=== PATIENT | female | born 1940 | race Caucasian/White ===

== ENCOUNTER → 2023-09-03 13:38 | Outpatient (REF) | payer MEDICARE, SELFPAY | LOC: HWRAD 13:38 | PROVIDERS: ATTENDING PHYSICIAN Specialist; FAMILY PHYSICIAN Family Medicine | DX: D41.01 Neoplasm of uncertain behavior of right kidney (principal) | CPT/HCPCS: 76775 ==

== ENCOUNTER 2024-04-08 19:02 | Observation (INO) | payer MEDICARE, SELFPAY ==
[2024-04-08] VITALS (15 sets, daily range): BP systolic 75–128; BP diastolic 47–90; PULSE 80–108; BMI 21.5; BMI 21.4
[2024-04-08 14:24] LABS: % Basophils 0.3 % (0-2); % Eosinophils 0.6 % (0-6); % Immature Granulocytes 0.5 % (0-0.5); % Lymphocytes 12.2 % (20.5-51.1); % Neutrophils 80.4 % (42.2-75.2); Absolute Eosinophils 0.1 10^3/uL (0-0.7); Absolute Immature Granulocytes 0.1 10^3/uL (0-0.05); Absolute Lymphocytes 1.3 10^3/uL (1.2-3.4); Absolute Monocytes 0.6 10^3/uL (0.1-0.6); Absolute Neutrophils 8.3 10^3/uL (1.4-6.5); Hematocrit 37.8 % (37.0-47.0); Hemoglobin 12.8 g/dL (12.0-16.0); Mean Corp Hgb Conc. 33.9 g/dL (33.0-37.0); Mean Corpuscular Hgb 29.6 pg (27.0-31.0); Mean Corpuscular Volume 87.5 fL (81.0-99.0); Mean Platelet Volume 10.6 fL (7.4-10.4); Nucleated Red Blood Cells % 0 %; Platelet Count 209 10^3/uL (130-400); Red Blood Cell Count 4.32 10^6/uL (4.20-5.40); Red Cell Dist. Width 12.3 % (11.5-14.5); White Blood Cell Count 10.3 10^3/uL (4.8-10.8)
[2024-04-08 14:51] LABS: Troponin I < 0.012 ng/ml
--- NOTE | 2024-04-08 14:51 | ED.GENMED ---
History of Present Illness
General
Chief Complaint: Fainting/Passed Out
Source: patient
Time Seen by Provider: 04/08/24 13:19
History of Present Illness
History of Present Illness:
84-year-old female presenting to the emergency department for evaluation after having 2 syncopal episodes over the last 2 days, 1 on Thursday and 1 yesterday. She notes the first time she was in the kitchen and yesterday was in the bathroom.
Patient states no prodromal symptoms prior to syncopizing She believes she struck her back against a vanity in her bathroom. Today patient notes some diffuse back pain. Patient also notes a separate incident 2 weeks ago where she excellently
tripped while walking on her stairs and fell onto the lip of one of the stairs injuring the rib area just underneath the left breast. States has been having pain to this area but it it has been improving. Patient denies any use of anticoagulants.
No fevers or infectious symptoms. No other concerns at this time
Past History
Past History
ED Past Medical History: Other (IBS, C. difficile colitis, GERD, chronic back pain)
ED Past Surgical History: Orthopedic and Other (agree with RN note )
Social History
Tobacco: Non-smoker
Alcohol: None
Drug: None
Personal:
Living: with family
Review of Systems
Review of Systems
All Other Systems: ROS reviewed and negative except as documented in HPI and ROS
Phy Exam
Physical Exam
Physical Exam:
GENERAL: Alert , in no apparent distress at rest
Head: Calvarium is without any sign of trauma. There is ecchymosis to the right inferior lip
EYE: clear conjunctiva
NECK: Supple
ENT: o/p clr, mmm.
CARDIAC: Regular rate and rhythm, frequent PAC on telemetry, systolic murmur noted at right second intercostal space.
LUNGS: Clear breath sounds bilaterally, no acute respiratory distress, no wheezes/rales/rhonchi
ABDOMEN: Soft, without focal tenderness, no r/g, no cvat
BACK: diffusely tender. no focal areas of ttp
NEUROLOGICAL: Alert and oriented x 3
SKIN: Warm and dry, skin intact.
MUSCULOSKELETAL: No edema, well perfused.
PSYCH: Normal and appropriate interaction.
Scores
Heart Failure Risk
Heart Failure Risk Score: Not Applicable
Heart Score for Chest Pain Patients
STEMI patient?: Not applicable
Withdrawal Assessment of Alcohol
Withdrawal Assessment Completed?: Not applicable
Course
Orders/Labs/Results
Orders:
Orders
04/08/24 12:43
EKG [Electrocardiogram (*1)] Urgent
Reason for Study: Syncope
EKG- Treatment ONCE
04/08/24 13:36
Orthostatic VS- Treatment ONCE
CR Pelvis - 1 Or 2 Views Urgent
Comment:
Reason For Exam: lower back/pelvic pain s/p fall/syncope
04/08/24 13:38
CT Head W/o Iv Contrast Urgent
Comment:
Reason For Exam: syncope, head injury
04/08/24 14:16
Complete Blood Count/With Diff Urgent
Comprehensive Metabolic Panel Urgent
Magnesium Urgent
TSH Urgent
Troponin I Urgent
04/08/24 14:20
CT Cervical Spine W/o Iv Contr Urgent
Comment:
Reason For Exam: syncope, pain
04/08/24 14:53
0.9% Sodium Chloride 1000 ml [Nss] 1,000 ml IV BOLUS
Abnormal Lab Results
04/08/24
14:16
MPV 10.6 H fL
(7.4-10.4)
Abs Immat Gran (auto) 0.1 H 10^3/uL
(0-0.05)
Absolute Neuts (auto) 8.3 H 10^3/uL
(1.4-6.5)
Neutrophils % 80.4 H %
(42.2-75.2)
Lymphocytes % 12.2 L %
(20.5-51.1)
Creatinine 0.5 L mg/dL
(0.6-1.0)
Glucose 116 H mg/dl
(70-99)
Total Protein 6.1 L g/dl
(6.3-8.2)
TSH < 0.02 L uIU/ml
(0.47-4.68)
04/08/24 14:16
04/08/24 14:16
Vital Signs
Initial and Last Documented VS:
Initial Vital Signs
Temp Pulse Resp BP Pulse Ox
98.7 F 93 18 123/73 97
04/08/24 12:40 04/08/24 12:40 04/08/24 12:40 04/08/24 12:40 04/08/24 12:40
Last Documented Vital Signs
Temp Pulse Resp BP Pulse Ox
98.7 F 87 22 124/85 98
04/08/24 12:40 04/08/24 15:15 04/08/24 15:15 04/08/24 15:01 04/08/24 15:15
MDM/Problems Addressed
Differential Diagnosis Includes:
Vagal event, cardiac dysrhythmia, anemia, electrolyte disturbance, medication interactions
MDM/Problems Addressed:
84-year-old female presenting to the emergency department for evaluation of 2 syncopal episodes over the last 2 days. Patient notes that she has probably had about 6 episodes of syncope over the last 2 years. Follows with cardiology at [facility]
and has had workup for this with no abnormalities found in the past. Patient notes she does not believe she had prodromal symptoms prior to her syncope. Patient does have a systolic murmur and given her age may have a component of aortic stenosis.
Will check orthostatics. Labs ordered. CT of the head and cervical spine ordered. I also ordered an x-ray of the due to patient's reported pain. Disposition pending
*Pulse Oximetry
Patient hypoxic: no
*EKG
Interpreted by ED Provider?: Yes
Heart Rate: 109
Rate: tachycardiac
Rhythm: other (AT)
[place]: normal axis
Ischemia: no ischemia
*Network Security Engineer Interpretation
Rate: tachycardiac
Heart Rate: 92
Rhythm: PAC's
*Critical Care Note
Total Time (30-74mins, 75-104mins- exclusive of procedures): Not Applicable
Data Reviewed
Review of Other/Old Records Reveals: Labs
Source: patient
Patient Management
Escalation/DeEscalation of care consider admission/obs:
Patient lab findings noted and without abnormalities. CT head/C-spine with chronic findings and no acute emergent pathologies. Pelvic XR without fracture.
Patient did have positive orthostatics. Reported she felt a little weak when standing but notes she did not feel weak prior to syncopal episodes. 1L NSS ordered
Given her age, cardiac findings (murmur) and AT feel it would be best for patient to be monitored and possible cardiology consult.
Hospitalist team is aware and accepts for continued eval and treatment
ED Attending Note
-
Portions of this chart may have been created with voice recognition software.� Occasional wrong word or��sound alike� substitutions may have occurred due to the inherent limitations of voice recognition software.
Discharge Plan
Departure
Patient Disposition: Admit
Date of Disposition: 04/08/24
Time of Disposition: 15:34
Presentation/result/management discussed w/ accepting MD/DO: Hospitalist
Discharge Problem:
Syncope
Prescriptions:
No Action
oxazepam 10 MG capsule
10 mg PO .UP TO QID
azelastine 137 MCG/SPRAY aerosol,spray
2 spray intranasal BID
ezetimibe 10 MG tablet
10 mg PO QPM
Voltaren Gel
1 unit topical BID
ascorbic acid (vitamin C) [Vitamin C] 1,000 MG tablet
1,000 mg PO DAILY
venlafaxine 25 MG tablet
75 mg PO DAILY
ranitidine HCl [Zantac] 150 MG tablet
150 mg PO BID
lidocaine 1 PATCH adhesive patch,medicated
4 patch topical DAILY PRN (Reason: pain)
gabapentin 300 MG capsule
300 mg PO BID
nvoqccdv-mug-HG-lycopen-lutein [Centrum Silver] 1 EACH tablet
1 ea PO DAILY
pldrhlnq-ytlaa-qdmjj-CF borate [[employer]] 1 EACH tablet
2 ea PO DAILY
oxybutynin chloride 10 MG tablet extended release 24hr
10 mg PO DAILY PRN (Reason: urinary frequency)
loratadine-pseudoephedrine 240 MG/10 MG tablet extended release 24 hr
1 tab PO DAILY
dicyclomine 20 MG tablet
20 mg PO .UP TO QID
levothyroxine 125 MCG tablet
125 mcg PO DAILY
vitamin B complex 1 TAB tablet
1 tab PO DAILY
Super Bio Curcumin
400 mg PO DAILY
Vancomycin
250 mg PO DAILY
L.acidoph, paracasei,B. lactis 1 EACH capsule
1 ea PO BID
hydrocodone-acetaminophen [[place]] 1 EACH tablet
1 ea PO Q6HPRN PRN (Reason: pain) Qty: 30 0RF
Rx Instructions:
Take 1 tablet four times a day, every 6 hours for pain
cephalexin 500 MG capsule
500 mg PO QID 4 Days 0RF
lorazepam 1 MG tablet
1 mg PO TIDPRN PRN (Reason: pain/spasms) Qty: 40 0RF
aspirin 325 MG tablet
325 mg PO DAILY
multivitamin with minerals [Hair,Skin and Nails] 1 EACH tablet
1 ea PO BID
cranberry 500 MG capsule
500 mg PO DAILY
vancomycin 250 MG/5 ML recon soln
250 mg PO DAILY
Hemp Oil Oil
750 mg PO BID
Referrals:
Dennys Trinh DO [Family Provider] -
Interventions
Interventions:
*Risk Screen - Suicide Last Done: 04/08/24 14:06
*General Assessment Last Done: 04/08/24 14:06
*Neglect/Abuse Screening Last Done: 04/08/24 14:06
*ED COVID-19 Vaccine History Last Done: 04/08/24 14:06
ED- Cardiac Assessment Last Done: 04/08/24 14:34
ED- Neurological Assessment Last Done: 04/08/24 14:34
Discharge Date and Time
Print Language: ST LUCIAN
[2024-04-08] MEDS: NSS 1000 IV (14:54)
[2024-04-08 15:19] LABS: TSH < 0.02 uIU/ml (0.47-4.68)
[2024-04-08 15:27] LABS: ALT (SGPT) 25 U/L (0-35); AST (SGOT) 29 U/L (14-36); Albumin 3.9 g/dl (3.5-5.0); Alkaline Phosphatase 123 U/L (38-126); Blood Urea Nitrogen 15 mg/dl (7-17); Calcium 9.6 mg/dl (8.4-10.2); Carbon Dioxide 26 mmol/L (22-30); Chloride 100 mmol/L (98-107); Estimated Creatinine Clearance 58 ml/min; Glucose 116 mg/dl (70-99); Magnesium 1.9 mg/dl (1.6-2.3); Potassium 3.9 mmol/L (3.5-5.1); Sodium 138 mmol/L (135-145); Total Bilirubin 0.5 mg/dl (0.2-1.3); Total Protein 6.1 g/dl (6.3-8.2); eGFR > 60.00
[2024-04-08] MEDS: PERCOCET 5/325 1 TABLET PO ×2 (15:44→21:05)
--- NOTE | 2024-04-08 15:54 | HPS.HSE ---
Family Physician
-
Family Physician: Dennys Trinh
Chief Complaint
-
syncope
History of Present Illness
84F IBS GERD chronic back pain Hypothyroidism p/w daily syncopal episodes past 2 days. Denies fever chills nausea vomiting diarrhea constipation. 2 weeks prior, patient had a mechanical fall on her stairs, tripping and hitting her bottom lip and
left side chest under breast. Reports having pain but has been improving. VSS, labs notable for Suppressed TSH, Free T4 pending. No acute abn's CT head cervical spine and X-ray pelvis.
Medical History
Past Medical History
Past Medical History: Reports Other (as above)
Past Surgical History: Reports Other (as above)
Social History
Tobacco: Non-smoker
Alcohol: None
Drug: None
Personal:
Living: With Family
Family History
Family History: Not pertinent (reviewed)
Allergies / Home Medications
Allergies reflects when Allergies were last updated in [facility].
Home Medications with original date entered in [facility]
Allergy/Medication List:
Allergies
Allergy/AdvReac Type Severity Reaction Status Date / Time
orange Allergy HIVES 'TOO Verified 04/08/24 12:42
MANY
ORANGES'
verapamil [Verapamil] Allergy Rash/Flushing Verified 04/08/24 12:42
face and
neck
environmental Allergy sneeze/coug Uncoded 04/08/24 12:42
h
Home Medications
azelastine 137 mcg (0.1 %) nasal spray 1 spray intranasal DAILY 06/28/10
ezetimibe 10 mg tablet 10 mg PO HS 06/28/10
gabapentin 300 mg capsule 300 mg PO DAILY 01/25/17
lidocaine 5 % topical patch 2 patch topical DAILYPRN PRN neck pain 01/25/17
jtxfcznd-hfp-trlap acid 0.4 mg-lycopene 300 mcg-lutein 250 mcg tablet (Centrum Silver) 1 ea PO DAILY 01/25/17
dicyclomine 20 mg tablet 20 mg PO QIDPRN PRN IBS 03/17/18
levothyroxine 125 mcg tablet 125 mcg PO DAILY 03/17/18
oxybutynin chloride 10 mg tablet,extended release 24 hr 10 mg PO DAILYPRN PRN urinary frequency 03/17/18
vitamin B complex 1 tab PO DAILY 03/17/18
cranberry 500 mg capsule 500 mg PO BID 03/22/18
multivitamin with minerals (Hair,Skin and Nails tablet) 1 ea PO BID 03/22/18
Saccharomyces boulardii 250 mg capsule (Florastor) 250 mg PO DAILY 04/08/24
ascorbic acid (vitamin C) 500 mg tablet (Vitamin C) 500 mg PO DAILY 04/08/24
cholecalciferol (vitamin D3) 25 mcg (1,000 unit) tablet (Vitamin D3) 25 mcg PO DAILY 04/08/24
diclofenac sodium 1 % topical gel 2 g topical DAILYPRN PRN mild pain 04/08/24
esomeprazole magnesium 20 mg capsule,delayed release (Nexium 24HR) 20 mg PO DAILY 04/08/24
famotidine 40 mg tablet 40 mg PO HS 04/08/24
fluticasone propionate 50 mcg/actuation nasal spray,suspension 1 spray intranasal DAILY 04/08/24
gabapentin 300 mg capsule 600 mg PO HS 04/08/24
ibuprofen 200 mg tablet (Advil) 400 mg PO Q6HPRN PRN mild pain 04/08/24
montelukast 10 mg tablet 10 mg PO HS 04/08/24
naphazo HCl 0.025 %-hyprome 0.2 %-ps 80 0.5 %-Zn sulf 0.25 % eye drops (Clear Eyes Complete) 1 drp BOTH EYES QIDPRN PRN dry eyes 04/08/24
turmeric 400 mg capsule 400 mg PO DAILY 04/08/24
venlafaxine 75 mg tablet 75 mg PO DAILY 04/08/24
vitamins A,C,K-fwzk-geqstd 4,296 mcg-226 mg-90 mg capsule (PreserVision AREDS) 1 cap PO BID 04/08/24
zinc sulfate 50 mg zinc (220 mg) tablet 50 mg PO DAILY 04/08/24
Review of Systems
-
A 12 point ROS was completed and negative except as noted: Yes
Constitutional: Reports Other (as below)
Physical Exam
Vital Signs
Vital Signs
Temp Pulse Resp BP Pulse Ox
98.7 F 87 22 124/85 98
04/08/24 12:40 04/08/24 15:15 04/08/24 15:15 04/08/24 15:01 04/08/24 15:15
Physical Exam
General: Other (as below)
Laboratory Results
-
04/08/24 14:16
04/08/24 14:16
Laboratory Results
Total Bilirubin 0.5 mg/dl (0.2-1.3) 04/08/24 14:16
Total Bilirubin Cancelled 04/08/24 14:16
AST 29 U/L (14-36) 04/08/24 14:16
AST Cancelled 04/08/24 14:16
ALT 25 U/L (0-35) 04/08/24 14:16
ALT Cancelled 04/08/24 14:16
Alkaline Phosphatase 123 U/L (38-126) 04/08/24 14:16
Alkaline Phosphatase Cancelled 04/08/24 14:16
Troponin I < 0.012 ng/ml 04/08/24 14:16
Impression/Plan
-
ROS
General: Denies fever chills night sweats unexpected weight loss
Neuro: Denies seizure shaking dizziness vertigo Reports Syncope
Psych: denies depression hallucinations confusion manic episodes
Endocrine: Denies polyuria polydipsia polyphagia heat/cold intolerance
HEENT: Denies blindness visual disturbances epistaxis
Pulmonary: denies coughing hemoptysis sneezing sob dyspnea on exertion
Cardiovascular: denies chest pain palpitations leg swelling
Hematology: denies signs symptoms of anemia easy bruising/bleeding
Gastrointestinal: denies nausea vomiting diarrhea constipation hematemesis hematochezia melena
Genito-Urinary: denies retention incontinence dysuria
Musculoskeletal: reports joint pain
Dermatology: reports bruising bottom lip from fall
Physical Exam
General: No pallor, cyanosis, or jaundice.
HEENT: Throat clear. PERRLA Normocephalic atraumatic
NECK: Supple. No JVD Carotid Bruits
RESPIRATORY: Lungs clear to auscultation. No crackles wheezes stridor
CVS: S1, S2 normal. RRR. No murmur, rub or gallop.
ABDOMEN: Soft, non-tender. No distension. BS+/normal.
EXTREMITIES: No peripheral cyanosis or edema.
LUMBER PRESS OPERATOR: AOx3. No focal deficits.
IMPRESSION:
84F IBS GERD chronic back pain Hypothyroidism p/w daily syncopal episodes past 2 days. Denies fever chills nausea vomiting diarrhea constipation. 2 weeks prior, patient had a mechanical fall on her stairs, tripping and hitting her bottom lip and
left side chest under breast. Reports having pain but has been improving. VSS, labs notable for Suppressed TSH, Free T4 pending. No acute abn's CT head cervical spine and X-ray pelvis. Noted heart murmur present for years. Patient had syncope
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
PLAN:
#Syncope
#Suspect Orthostatic Hypotension
#Heart Murmur
#hx falls
Tele Obs
Check ECHO
Cardio eval
monitor orthostatic vitals
Apply abd binder during day
PT/OT eval
check CR ribs
Fall precautions
#Chronic back pain
pain control
percocet prn
#Hypothyroidism
TSH suppressed, T4 pending
Clinically does not exhibit hyperthyroidism
cont home Synthroid dose for now
dvt ppx Lovenox
Full Code as per patient and son at bedside
I spent a total of 75 minutes with the patient or on the floor. More than 50% of this time involved counseling and coordination of care.
[2024-04-08 20:16] LABS: Free T4 2.27 ng/dl (0.78-2.19)
[2024-04-08] MEDS: NEURONTIN 600 MG PO (21:03)
[2024-04-08] MEDS: ZETIA 10 MG PO (21:04)
[2024-04-08] MEDS: SINGULAIR 10 MG PO (21:04)
[2024-04-08] MEDS: PEPCID 40 MG PO (21:04)
--- NOTE | 2024-04-08 22:11 | PTCARENOTE ---
patient admitted to [facility], accompanied by her son. Placed on Tele #[phone], oriented to room and poc. Inst on fall precautions and need to call for assistance to go to the bathroom or get oob. Pt verb understanding. Admission assessment completed
[2024-04-09] VITALS (10 sets, daily range): BP systolic 101–136; BP diastolic 44–80; PULSE 70–94; O2SAT 93
[2024-04-09] MEDS: PERCOCET 5/325 1 TABLET PO ×2 (02:40→09:23)
[2024-04-09] MEDS: SYNTHROID 125 MCG PO (05:05)
--- NOTE | 2024-04-09 07:08 | W.PN.HOSP.TC ---
Today's Communication/Plan
-
pain control
percocet switched to oxycodone prn
check thoracic spine x-ray
PT/OT
monitor orthostatic vials
Assessment / Plan
Assessment / Plan
Physical Exam
General: No pallor, cyanosis, or jaundice.
HEENT: Throat clear. PERRLA Normocephalic atraumatic
NECK: Supple. No JVD Carotid Bruits
RESPIRATORY: Lungs clear to auscultation. No crackles wheezes stridor
CVS: S1, S2 normal. RRR. No murmur, rub or gallop.
ABDOMEN: Soft, non-tender. No distension. BS+/normal.
EXTREMITIES: No peripheral cyanosis or edema.
MARGIN TRIMMER: AOx3. No focal deficits.
IMPRESSION:
84F IBS GERD chronic back pain Hypothyroidism p/w daily syncopal episodes past 2 days. Denies fever chills nausea vomiting diarrhea constipation. 2 weeks prior, patient had a mechanical fall on her stairs, tripping and hitting her bottom lip and
left side chest under breast. Reports having pain but has been improving. VSS, labs notable for Suppressed TSH, Free T4 pending. No acute abn's CT head cervical spine and X-ray pelvis. Noted heart murmur present for years. Patient had syncope
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
PLAN:
#Syncope
#Orthostatic Hypotension since improved
#Heart Murmur
#hx falls
Tele Obs
ECHO pending
Cardio eval appreciated
monitor orthostatic vitals (initial noted systolic drop from supine 117/66 to 75/59 standing, since improved/resolved)
Apply abd binder during day
PT/OT eval appreciated Home health
CR ribs appreciated no rib fractures but notes possible T10 compression fx
Fall precautions
#Chronic back pain
pain control
appears oversedated with percocet switched to oxycodone 2.5 mg prn
#Hypothyroidism
TSH suppressed, T4 noted elevated
Synthroid dose reduced from 125 mcg to 100 mcg
dvt ppx Lovenox
Full Code
discussed with patient and her son Dennys
I spent a total of 40 minutes with the patient or on the floor. More than 50% of this time involved counseling and coordination of care.
Anticipated Discharge: Within 24 hours
Subjective/Interval History
-
Date of Service: April 09, 2024
No acute distress resting comfortably in bed. On waking patient reporting significant back pain. Seems confused likely due to recent Percocet. Vitals signs stable on room air.
Objective Data
-
Labs:
Laboratory Results
04/09/24
05:50
WBC Pending
Hgb Pending
Hct Pending
Plt Count Pending
Sodium Pending
Potassium Pending
Chloride Pending
Carbon Dioxide Pending
BUN Pending
Creatinine Pending
Glucose Pending
Calcium Pending
Vital Signs:
Vital Signs
Temp Pulse Resp BP Pulse Ox
98.1 F 78 18 136/66 92
04/09/24 03:17 04/09/24 03:17 04/09/24 03:17 04/09/24 03:17 04/09/24 03:17
I&O
04/08/24 04/09/24 04/10/24
06:59 06:59 06:59
Intake Total 480 / 480
Balance 480 / 480
[2024-04-09 07:29] LABS: Hematocrit 35.7 % (37.0-47.0); Hemoglobin 11.9 g/dL (12.0-16.0); Mean Corp Hgb Conc. 33.3 g/dL (33.0-37.0); Mean Corpuscular Hgb 29.4 pg (27.0-31.0); Mean Corpuscular Volume 88.1 fL (81.0-99.0); Mean Platelet Volume 10.9 fL (7.4-10.4); Platelet Count 206 10^3/uL (130-400); Red Blood Cell Count 4.05 10^6/uL (4.20-5.40); Red Cell Dist. Width 12.4 % (11.5-14.5); White Blood Cell Count 7.9 10^3/uL (4.8-10.8)
[2024-04-09 07:53] LABS: Blood Urea Nitrogen 13 mg/dl (7-17); Carbon Dioxide 27 mmol/L (22-30); Chloride 103 mmol/L (98-107); Estimated Creatinine Clearance 60 ml/min; Glucose 111 mg/dl (70-99); Potassium 3.8 mmol/L (3.5-5.1); Sodium 142 mmol/L (135-145); eGFR > 60.00
--- NOTE | 2024-04-09 08:41 | CON.CAR ---
Addendum entered and electronically signed by Mike Beck MD 04/09/24 10:36:
I saw and examined the patient.
The CLOTHING WORKER's note was reviewed and I agree with the note.
Comment: 2 falls, 2 syncopal events over last 2 weeks. Cardiac murmur likely of moderate but echo will r/o more severe or less likely MR. Hayden so far just shows a few very short runs of ATach.
Perhaps home later today or tomorrow with plans for 1) echo and 2) 30 day looping event recorder. She wishes to followup with Dr. Link. Etiology of syncope may prove to be from tachy-lavonne but NO LAVONNE seen at termination of her short runs of
ATach so we may not find bradycardia.
Original Note:
Consultation
Consultation Request
Date/Time Consultation Requested: 04/08/24 8:30p
Date/Time Consultation Performed: 04/09/24 8a
Requesting Provider: Dr. Girard
Performing Provider: CLARISA Langley for Dr. Beck
Reason for Consultation: syncope
Medical History
-
Chief Complaint: syncope
History of Present Illness:
Mrs. Sorensen is an 84 yo female with PACs, PSVT, HLD, GERD, chronic back pain and hypothyroid, who presents to the ER with c/o 2 syncopal episodes last week. One she was standing in the kitchen then woke up on the floor; then the other episode
was the same but in the bathroom. She denies any prodrome or symptoms prior. She also admits to 2 mechanical falls in the last 2 weeks, trip and fall on a blanket then a rug. She c/o mild back and hip pain, x-ray negative. She also has
ecchymosis to her lip/face. She is admitted to the hospitalist service and we are consulted for syncope. She is a patient of Dr. York at [facility] cardiology, last seen about 3 years ago[address] Her sees Dr. Link and she would like to follow up
with Dr. Link as well.
Past Medical History
Past Medical History: Other (as above)
Past Surgical History: Orthopedic
Social History
Tobacco: Non-Smoker
Alcohol: None
Personal:
Living: With Family
Family History
Family History: Reviewed & Not Pertinent
Allergies / Home Medications
Allergy/AdvReac Type Severity Reaction Status Date / Time
orange Allergy HIVES 'TOO Verified 04/08/24 12:42
MANY
ORANGES'
verapamil [Verapamil] Allergy Rash/Flushing Verified 04/08/24 12:42
face and
neck
environmental Allergy sneeze/coug Uncoded 04/08/24 12:42
h
�Medication �Instructions �Recorded �Confirmed �Type
azelastine 137 mcg (0.1 %) nasal 1 spray intranasal DAILY Congestion 06/28/10 04/08/24 History
spray
ezetimibe 10 mg tablet 10 mg PO HS High Cholesterol 06/28/10 04/08/24 History
gabapentin 300 mg capsule 300 mg PO DAILY Pain 01/25/17 04/08/24 History
lidocaine 5 % topical patch 2 patch topical DAILYPRN PRN neck 01/25/17 04/08/24 History
pain
xvicfkky-zwf-czayk acid 0.4 1 ea PO DAILY Supplement 01/25/17 04/08/24 History
mg-lycopene 300 mcg-lutein 250 mcg
tablet (Centrum Silver)
dicyclomine 20 mg tablet 20 mg PO QIDPRN PRN IBS 03/17/18 04/08/24 History
levothyroxine 125 mcg tablet 125 mcg PO DAILY Thyroid 03/17/18 04/08/24 History
oxybutynin chloride 10 mg 10 mg PO DAILYPRN PRN urinary 03/17/18 04/08/24 History
tablet,extended release 24 hr frequency
vitamin B complex 1 tab PO DAILY Supplement 03/17/18 04/08/24 History
cranberry 500 mg capsule 500 mg PO BID Supplement 03/22/18 04/08/24 History
multivitamin with minerals 1 ea PO BID Supplement 03/22/18 04/08/24 History
(Hair,Skin and Nails tablet)
Saccharomyces boulardii 250 mg 250 mg PO DAILY Supplement 04/08/24 04/08/24 History
capsule (Florastor)
ascorbic acid (vitamin C) 500 mg 500 mg PO DAILY Supplement 04/08/24 04/08/24 History
tablet (Vitamin C)
cholecalciferol (vitamin D3) 25 25 mcg PO DAILY Supplement 04/08/24 04/08/24 History
mcg (1,000 unit) tablet (Vitamin
D3)
diclofenac sodium 1 % topical gel 2 g topical DAILYPRN PRN mild pain 04/08/24 04/08/24 History
esomeprazole magnesium 20 mg 20 mg PO DAILY GERD 04/08/24 04/08/24 History
capsule,delayed release (Nexium
24HR)
famotidine 40 mg tablet 40 mg PO HS Gastrointestinal Issue 04/08/24 04/08/24 History
fluticasone propionate 50 1 spray intranasal DAILY Congestion 04/08/24 04/08/24 History
mcg/actuation nasal
spray,suspension
gabapentin 300 mg capsule 600 mg PO HS Pain 04/08/24 04/08/24 History
ibuprofen 200 mg tablet (Advil) 400 mg PO Q6HPRN PRN mild pain 04/08/24 04/08/24 History
montelukast 10 mg tablet 10 mg PO HS ASTHMA 04/08/24 04/08/24 History
naphazo HCl 0.025 %-hyprome 0.2 1 drp BOTH EYES QIDPRN PRN dry eyes 04/08/24 04/08/24 History
%-ps 80 0.5 %-Zn sulf 0.25 % eye
drops (Clear Eyes Complete)
turmeric 400 mg capsule 400 mg PO DAILY Supplement 04/08/24 04/08/24 History
venlafaxine 75 mg tablet 75 mg PO DAILY Mental 04/08/24 04/08/24 History
Health/Anxiety
vitamins A,C,G-jqoa-lxtdhu 4,296 1 cap PO BID Supplement 04/08/24 04/08/24 History
mcg-226 mg-90 mg capsule
(PreserVision AREDS)
zinc sulfate 50 mg zinc (220 mg) 50 mg PO DAILY Supplement 04/08/24 04/08/24 History
tablet
Review of Systems
-
History Source: Patient
All other systems: Negative unless noted
Physical Exam
Vital Signs
Temp Pulse Resp BP Pulse Ox
97.8 F 75 18 130/59 90
04/09/24 07:00 04/09/24 07:00 04/09/24 07:00 04/09/24 07:00 04/09/24 07:00
Lab Results
04/09/24 05:50
04/09/24 05:50
Troponin I < 0.012 ng/ml 04/08/24 14:16
Impression / Plan
-
Syncope - twice last week.
- standing in the kitchen/bathroom then wakes up on the floor.
- denies prodrome or cardiac symptoms prior.
- EKG with Atach 109 bpm.
- tele with NSR with PACs, and PSVT.
- no bradyarrhythmias or pauses on tele, continue to monitor.
- positive orthostatic vitals in the ER as well.
- check echo.
- will need outpatient cardiac monitoring at discharge. she wants to see Dr. Link since her sees him also.
PACs/PSVT/Atach - seen on tele.
- she admits history of these when seeing Dr. York at [facility].
- continue to monitor on tele.
Murmur - likely .
- check echo.
- denies history of valve disease.
GERD - stable on Pepcid, continue.
HLD - stable on Zetia, continue.
Hypothyroid - low TSH with high free T4.
- on levothyroxine.
- management per hospitalist.
Data Reviewed
-
EKG: Tracing Personally Visualized and interpreted (Atach 109 bpm)
Radiology: Report Reviewed by me (hip and cervical spine negative)
CT Scan: Report Reviewed by me (head negative)
Labs: Labs Reviewed by me
Old Records: Reviewed
[2024-04-09] MEDS: VITAMIN C 500 MG PO (09:00)
[2024-04-09] MEDS: VITAMIN D3 (cholecalciferol) 25 MCG PO (09:00)
[2024-04-09] MEDS: PROTONIX 40 MG PO (09:00)
[2024-04-09] MEDS: FLORASTOR 250 MG PO (09:00)
[2024-04-09] MEDS: NEURONTIN 300 MG PO (09:00)
[2024-04-09] MEDS: EFFEXOR 75 MG PO (09:07)
--- NOTE | 2024-04-09 10:50 | CM ---
Patient seen bedside.
IA completed.
Patient lives with spouse, daughter and granddaughter.
Patient independent prior to admission, has a cane.
Friend is going to loan her a RW.
patient does not drive.
patient had VN in the past, denies needs at this time.
PCP: Dr Trinh
Pharmacy: [facility]
Plan: home no needs anticiapted.
Family will transport.
GARIBAY completed
--- NOTE | 2024-04-09 11:04 | PTCARENOTE ---
Assumed care of pt from previous nurse. Pt with pain to back, prn pain medication provided with positive results. Pt is on tele running sinus arrhythmia. Pt call vitale is within reach, pt rings leonides. will cont to monitor.
[2024-04-09] MEDS: LIDOCAINE 4% PATCH 1 PATCH TOPICAL (16:25)
[2024-04-09] MEDS: ROXICODONE 2.5 MG PO ×2 (16:32→20:41)
[2024-04-09] MEDS: LOVENOX 40 MG SC (18:12)
[2024-04-09] MEDS: ZETIA 10 MG PO (20:42)
[2024-04-09] MEDS: PEPCID 40 MG PO (20:42)
[2024-04-09] MEDS: SINGULAIR 10 MG PO (20:42)
[2024-04-09] MEDS: NEURONTIN 600 MG PO (20:43)
[2024-04-09] MEDS: TYLENOL 650 MG PO (20:43)
[2024-04-09] MEDS: MOTRIN 400 MG PO (21:58)
[2024-04-10] MEDS: TYLENOL PO ×2 (00:16→18:35)
[2024-04-10 03:00] VITALS: BP 135/61
[2024-04-10] MEDS: ROXICODONE 2.5 MG PO ×3 (04:28→18:38)
[2024-04-10] MEDS: TYLENOL 650 MG PO ×3 (04:29→14:00)
[2024-04-10] MEDS: SYNTHROID 100 MCG PO (04:31)
[2024-04-10 07:00] VITALS: BP 109/68; BP 113/94; BP 130/64; PULSE 64; PULSE 81; PULSE 85
--- NOTE | 2024-04-10 07:19 | W.PN.HOSP.TC ---
Addendum entered and electronically signed by Saran Girard MD 04/10/24 17:39:
Mild Hypokalemia, repleted
Original Note:
Today's Communication/Plan
-
discharge
Assessment / Plan
Assessment / Plan
Physical Exam
General: No pallor, cyanosis, or jaundice.
HEENT: Throat clear. PERRLA Normocephalic atraumatic
NECK: Supple. No JVD Carotid Bruits
RESPIRATORY: Lungs clear to auscultation. No crackles wheezes stridor
CVS: S1, S2 normal. RRR. No murmur, rub or gallop.
ABDOMEN: Soft, non-tender. No distension. BS+/normal.
EXTREMITIES: No peripheral cyanosis or edema.
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
IMPRESSION:
84F IBS GERD chronic back pain Hypothyroidism p/w daily syncopal episodes past 2 days. Denies fever chills nausea vomiting diarrhea constipation. 2 weeks prior, patient had a mechanical fall on her stairs, tripping and hitting her bottom lip and
left side chest under breast. Reports having pain but has been improving. VSS, labs notable for Suppressed TSH, Free T4 pending. No acute abn's CT head cervical spine and X-ray pelvis. Noted heart murmur present for years. Patient had syncope
work up years ago with [facility] at [facility] and was noted to have paroxysmal supraventricular tachycardia.
PLAN:
#Syncope
#Orthostatic Hypotension since improved
#Heart Murmur
#hx falls
Cardio eval appreciated stable for follow up outpatient Cardiology
monitor orthostatic vitals (initial noted systolic drop from supine 117/66 to 75/59 standing, since improved/resolved)
Apply abd binder during day
PT/OT eval appreciated Home health
CR ribs appreciated no rib fractures but notes possible T10 compression fx confirmed on Thoracic Spine X-ray age indeterminate
Fall precautions
#Chronic back pain
pain control
appears oversedated with percocet switched to oxycodone 2.5 mg prn
mental status since improved, pain remains well controlled at this time
#Hypothyroidism
TSH suppressed, T4 noted elevated
Synthroid dose reduced from 125 mcg to 100 mcg
dvt ppx Lovenox
Full Code
Medically stable for discharge home with home services and outpatient follow up recommendations.
discussed with patient and her son Dennys
Total Time Preparing Discharge ___40____ minutes including examination of the patient, summary of the hospital stay, instructions for continuing care to all relevant caregivers; and preparation of discharge records, prescriptions, and referral
forms if necessary.
Anticipated Discharge: Today
Subjective/Interval History
-
Date of Service: April 10, 2024
Seen and examined at bedside in no acute distress resting comfortably in bed. Reports significant improvement in pain. Overall reports feeling well. Eager to go home
Objective Data
-
Labs:
Laboratory Results
04/10/24
06:00
WBC Pending
Hgb Pending
Hct Pending
Plt Count Pending
Sodium Pending
Potassium Pending
Chloride Pending
Carbon Dioxide Pending
BUN Pending
Creatinine Pending
Glucose Pending
Calcium Pending
Vital Signs:
Vital Signs
Temp Pulse Resp BP Pulse Ox
98.6 F 68 18 135/61 93
04/10/24 03:00 04/10/24 03:00 04/10/24 03:00 04/10/24 03:00 04/10/24 03:00
I&O
04/09/24 04/10/24 04/11/24
06:59 06:59 06:59
Intake Total 480 / 480 840 / 840
Balance 480 / 480 840 / 840
[2024-04-10 07:57] LABS: Hematocrit 36.9 % (37.0-47.0); Hemoglobin 12.5 g/dL (12.0-16.0); Mean Corp Hgb Conc. 33.9 g/dL (33.0-37.0); Mean Corpuscular Hgb 30.3 pg (27.0-31.0); Mean Corpuscular Volume 89.6 fL (81.0-99.0); Mean Platelet Volume 10.4 fL (7.4-10.4); Platelet Count 219 10^3/uL (130-400); Red Blood Cell Count 4.12 10^6/uL (4.20-5.40); Red Cell Dist. Width 12.2 % (11.5-14.5); White Blood Cell Count 6.4 10^3/uL (4.8-10.8)
[2024-04-10 08:34] LABS: Blood Urea Nitrogen 9 mg/dl (7-17); Calcium 9.1 mg/dl (8.4-10.2); Carbon Dioxide 28 mmol/L (22-30); Chloride 100 mmol/L (98-107); Estimated Creatinine Clearance 60 ml/min; Glucose 91 mg/dl (70-99); Magnesium 1.9 mg/dl (1.6-2.3); Phosphorus 4.1 mg/dl (2.5-4.5); Potassium 3.4 mmol/L (3.5-5.1); Sodium 140 mmol/L (135-145); eGFR > 60.00
[2024-04-10] MEDS: VITAMIN C 500 MG PO (10:06)
[2024-04-10] MEDS: PROTONIX 40 MG PO (10:06)
[2024-04-10] MEDS: VITAMIN D3 (cholecalciferol) 25 MCG PO (10:06)
[2024-04-10] MEDS: EFFEXOR 75 MG PO (10:07)
[2024-04-10] MEDS: NEURONTIN 300 MG PO (10:07)
[2024-04-10] MEDS: LIDOCAINE 4% PATCH 1 PATCH TOPICAL (10:08)
[2024-04-10] MEDS: FLORASTOR 250 MG PO (10:15)
[2024-04-10 11:00] VITALS: BP 158/79
--- NOTE | 2024-04-10 11:31 | CM ---
Patient seen bedside.
PT/OT recommending home with home care.
Options reviewed with patient.
Patient would like [facility].
Referral via [facility].
Plan: Home with [facility] whens table.
--- NOTE | 2024-04-10 13:47 | W.PN.CD ---
Today's Communication / Plan
-
Cardiology will sign off
She will followup with our office, her follow's with Dr Link who she wishes to follow with
Additional cardiac workup can be as outpatient:
- Echo
- 28 day looping event recorder with auto-trigger
Cardiollgy will sign off
Impression / Plan
-
Syncope - twice last week
Falls
PACs/PSVT/Atach - seen on tele.
- she admits history of these when seeing Dr. York at [facility].
- no bradycardia
Murmur - likely and less likely MR
- check echo (can be done as outpatient)
GERD
HLD
Hypothyroid - low TSH with high free T4.
- on levothyroxine.
- management per hospitalist.
Subjective:
No CP, palps, falls, or syncope
Physical Exam
Vital Signs/Labs
Vital Signs
Temp Pulse Resp BP Pulse Ox
97.4 F 77 20 158/79 94
04/10/24 11:00 04/10/24 11:00 04/10/24 11:00 04/10/24 11:00 04/10/24 11:00
04/09/24 04/10/24 04/11/24
06:59 06:59 06:59
Actual Weight 56.444 kg
04/10/24 07:24
04/10/24 07:24
Magnesium 1.9 mg/dl (1.6-2.3) 04/10/24 07:24
TSH < 0.02 uIU/ml (0.47-4.68) L 04/08/24 14:16
Free T4 2.27 ng/dl (0.78-2.19) H 04/08/24 14:16
LAB Results
04/08/24
14:16
Troponin I < 0.012
Physical Exam
Constitutional: No acute distress
Cardiovascular: Rhythm & rate is regular, Pedal edema is absent and Systolic murmur present
Respiratory: Respiratory effort normal and Lungs clear to auscul.
GI: Soft
Neuro/Psych: Alert
Data Reviewed
-
Date of Service: April 10, 2024
[2024-04-10 15:00] VITALS: BP 115/58
[2024-04-10] MEDS: KLOR-CON 40 MEQ PO (16:15)
--- NOTE | 2024-04-10 16:22 | CHAP ---
Ms. Sorensen was grateful to be feeling better today. She welcomed prayer. Emotional and spiritual support provided.
[2024-04-10 16:27] VITALS: BP 115/58
--- NOTE | 2024-04-10 17:38 | W.DCSUMMARY ---
Discharge Summary
Discharge Data
Date of Admission: 04/08/24
Date of Discharge: 04/10/24
-
Pending Results: No
Discharge Plan
-
Patient Disposition: Home with Home Care
Discharge Diagnosis/Procedures: Syncope
Orthostatic Hypotension
Falls
Heart Murmur
T10 compression fracture indeterminate age
Hypothyroidism
Iatrogenic Hyperthyroidism
Condition: Fair
Diet: Regular
Activity: As tolerated and With Walker
Driving Restrictions: Not until seen by your Dr
Bathing Restrictions: None
Blood Work: Please repeat BMP with primary care provider in 1 week of discharge.
Please repeat Thyroid Function Tests with primary care provider in 1 month of discharge.
Others Tests: Follow up with Cardiology in 2 weeks for outpatient ECHO and possible outpatient development manager
Other Services: PT and OT
Activity Restrictions/Additional Instructions:
Please follow up with primary care provider in 1 week of discharge and Cardiology in 1-2 weeks of discharge.
Synthroid has been reduced to 100 mcg daily as your thyroid hormone levels were elevated.
A lidocaine patch and 5 days supply as needed oxycodone have been prescribed for back pain likely related to T10 compression fracture.
Please take medications as prescribed/recommended and follow up with primary care provider and/or other healthcare provider involved in your care for refills and/or further adjustment to your medication regimen as necessary.
A script has been provided for a rolling walker.
For orthostatic hypotension, recommend wearing abdominal binder during the day, remove at bedtime
Instructions: Using an abdominal binder
Referrals:
Fred Link DO [Active] - in one to two weeks
Dennys Trinh DO [Family Provider] - in one week
Prescriptions:
New
lidocaine 4 % Adhesive Patch,Medicated
1 patch topical DAILY Qty: 15 0RF
Rx Instructions:
Apply to back pain
levothyroxine 100 mcg Tablet
100 mcg PO DAILY @ 0600 30 Days Qty: 30 0RF
oxycodone 5 mg Tablet
2.5 mg PO BIDPRN PRN (Reason: moderate severe pain) 5 Days Qty: 5 0RF
Continued
azelastine 137 MCG/SPRAY aerosol,spray
1 spray intranasal DAILY
ezetimibe 10 MG tablet
10 mg PO HS
lidocaine 1 PATCH adhesive patch,medicated
2 patch topical DAILYPRN PRN (Reason: neck pain)
gabapentin 300 MG capsule
300 mg PO DAILY
Centrum Silver 1 EACH tablet
1 ea PO DAILY
oxybutynin chloride 10 MG tablet extended release 24hr
10 mg PO DAILYPRN PRN (Reason: urinary frequency)
dicyclomine 20 MG tablet
20 mg PO QIDPRN PRN (Reason: IBS)
vitamin B complex 1 TAB tablet
1 tab PO DAILY
Hair,Skin and Nails 1 EACH tablet
1 ea PO BID
cranberry 500 MG capsule
500 mg PO BID
venlafaxine 75 mg Tablet
75 mg PO DAILY
famotidine 40 mg Tablet
40 mg PO HS
zinc sulfate 50 mg zinc (220 mg) Tablet
50 mg PO DAILY
ascorbic acid (vitamin C) [Vitamin C] 500 mg Tablet
500 mg PO DAILY
ibuprofen [Advil] 200 mg Tablet
400 mg PO Q6HPRN PRN (Reason: mild pain)
gabapentin 300 mg Capsule
600 mg PO HS
montelukast 10 mg Tablet
10 mg PO HS
fluticasone propionate 50 mcg/actuation [place],Suspension
1 spray INTRANASAL DAILY
esomeprazole magnesium [Nexium 24HR] 20 mg Capsule,Delayed Release(Dr/Ec)
20 mg PO DAILY
Saccharomyces boulardii [Florastor] 250 mg Capsule
250 mg PO DAILY
cholecalciferol (vitamin D3) [Vitamin D3] 25 mcg (1,000 unit) Tablet
25 mcg PO DAILY
PreserVision AREDS 4,296 mcg-226 mg-90 mg Capsule
1 cap PO BID
diclofenac sodium 1 % Gel
2 g TOPICAL DAILYPRN PRN (Reason: mild pain)
Clear Eyes Complete 0.025-0.2-0.5 % Drops
1 drp BOTH EYES QIDPRN PRN (Reason: dry eyes)
turmeric 400 mg Capsule
400 mg PO DAILY
Discontinued
levothyroxine 125 MCG tablet
125 mcg PO DAILY
Discharge Orders:
Discharge Patient (As Directed); Ordered 04/10/24
Ordered By: Saran Girard
Discharge Date and Time
Print Language: FAROESE
[2024-04-10] MEDS: LOVENOX SC (18:36)
[2024-04-10] MEDS: MOTRIN 400 MG PO (19:25)
== END 2024-04-10 19:52 | disposition home health service (06) ==
LOC: 4 WEST ACU 19:02
PROVIDERS: Physician Assistant Medical; ADMITTING PHYSICIAN Internal Medicine; CONSULT PHYSICIAN Internal Medicine Cardiovascular Disease; EMERGENCY PHYSICIAN Emergency Medicine; FAMILY PHYSICIAN Family Medicine
DX: I95.1 Orthostatic hypotension (principal); R01.1 Cardiac murmur, unspecified; M54.9 Dorsalgia, unspecified; R29.6 Repeated falls; S00.83XA Contusion of other part of head, initial encounter; W01.198A Fall on same level from slipping, tripping and stumbling with subsequent striking against other object, initial encounter; Y93.01 Activity, walking, marching and hiking; Y92.009 Unspecified place in unspecified non-institutional (private) residence as the place of occurrence of the external cause; G89.29 Other chronic pain; E05.80 Other thyrotoxicosis without thyrotoxic crisis or storm; E03.9 Hypothyroidism, unspecified; K58.9 Irritable bowel syndrome, unspecified; K21.9 Gastro-esophageal reflux disease without esophagitis; M85.80 Other specified disorders of bone density and structure, unspecified site; M51.34 Other intervertebral disc degeneration, thoracic region; M48.54XA Collapsed vertebra, not elsewhere classified, thoracic region, initial encounter for fracture; E87.6 Hypokalemia; E78.5 Hyperlipidemia, unspecified; J01.30 Acute sphenoidal sinusitis, unspecified; J32.2 Chronic ethmoidal sinusitis; I73.9 Peripheral vascular disease, unspecified; M25.559 Pain in unspecified hip; R07.81 Pleurodynia; I47.19 Other supraventricular tachycardia; Z79.890 Hormone replacement therapy
CPT/HCPCS: 70450; 71111; 72070; 72125; 72170; 80048; 80053; 83735; 84100; 84439; 84443; 84484; 85025; 85027; 93005; 96360; 97162; 97166; 99285; G0378

== ENCOUNTER → 2024-04-26 12:40 | Outpatient (REF) | payer MEDICARE, SELFPAY | LOC: RCS 12:40 | PROVIDERS: ATTENDING PHYSICIAN Nurse Practitioner; FAMILY PHYSICIAN Family Medicine | DX: R55 Syncope and collapse (principal); R01.1 Cardiac murmur, unspecified | CPT/HCPCS: 93306 ==